=== PATIENT | male | born 1960 | race Caucasian/White ===

== ENCOUNTER 2020-03-16 15:24 | Emergency (ER) | payer OTHER ==
[~2020-03-16] VITALS: Ht 182.9 cm; Wt 75.0 kg
[~2020-03-16 15:24] MED LIST: NO CURRENT MEDICATIO
[2020-03-16 15:38] VITALS: BP 118/76; TEMP 98
[2020-03-16 17:00] VITALS: PULSE 78
== END 2020-03-16 17:00 | disposition home or self-care (01) ==
LOC: COL.ER 15:24
DX: S80.11XA Contusion of right lower leg, initial encounter (principal); W11.XXXA Fall on and from ladder, initial encounter